=== PATIENT | female | born 1945 | race Caucasian/White ===

== ENCOUNTER → 2019-05-22 | Day surgery (SDC) | payer OTHER ==
[~2019-05-22] MED LIST: ALLEGRA ALLERG180 MG PO; BYSTOLIC 5 MG5 M1 PO; CALCIUM 600 MG1 EAC2 PO; COQ-10100 MG PO; CYMBALTA60 MG PO; EPIDIOLEX100 MG/1 M PO; FISH OIL 1,2001 EAC6 PO; FLECAINIDE ACE150 MG PO; HYDROCHLOROTHIA25 M2 PO; IRBESARTAN300 MG PO; LIPITOR 20 MG T20 M1 PO; MELATONIN10 M3 PO; METFORMIN HCL500 MG PO; MULTIVITAMINS1 EAC6 PO; NORVASC5 MG PO; PROAIR HFA8.5 GM INH; PROTONIX40 M1 PO; SINGULAIR 10 MG10 M1 PO; SYMBICORT160 MCG/4. INH; TYLENOL EXTRA500 MG PO; XARELTO20 MG PO; ZANAFLEX4 MG PO
--- NOTE | ~2019-05-22 | OP ---
[address] [address] OPERATIVE REPORT Name: MECHE RUIZ Room: [facility]#: [id number] Admission: 05/22/19 Attend Phys: Fawn Pappas DPM Discharge: Date of : 47 Report #: [id number] THIS REPORT FOR: //name// cc: Cata Jiang MD, Carrie W. MD ~ THIS REPORT FOR: //name// CC: Fawn Jiang DATE OF SERVICE: 05/22/2019 PREOPERATIVE DIAGNOSES: Achilles tendinitis with intratendinous calcifications, left heel and exostosis, left calcaneus. POSTOPERATIVE DIAGNOSES: Achilles tendinitis with intratendinous calcifications, left heel and exostosis, left calcaneus. PROCEDURES: Excision of insertional calcifications left Achilles tendon and ostectomy of left calcaneus. PATHOLOGY: None. ANESTHESIA: General with local infiltration of lidocaine and bupivacaine. HEMOSTASIS: Left pneumatic ankle tourniquet set at 250 mmHg pressure. ESTIMATED BLOOD LOSS: Less than 3 mL. MATERIALS: 3-0 Vicryl, 3-0 nylon and a G2 Mitek anchor with 2-0 Ethibond. INJECTABLES: 20 mL of 1% lidocaine plain preoperatively and 20 mL 0.5% bupivacaine postoperatively. DESCRIPTION OF PROCEDURE: The patient was brought to the OR and anesthesia was administered. The patient was then transferred into a prone position on the surgical bed. Once the patient was positioned properly, a well-padded pneumatic tourniquet was applied to the midcalf of the left lower extremity. A timeout was then called, patient identified along with the extremity to be worked on any allergies that she had, ASU score and any other pertinent information. All parties in the OR were in agreement. Next, the left heel was infiltrated with 20 mL of 1% lidocaine plain. The patient was then prepped and draped in the usual sterile and aseptic manner. Left foot was exsanguinated via an Esmarch bandage and the ankle tourniquet elevated to 250 mmHg pressure. Attention was then directed to the left posterior heel where an incision was made to the midline of the left heel approximately 5 cm proximal [place] [address] OPERATIVE REPORT Name: MECHE RUIZ Room: [facility]#: [id number] Admission: 05/22/19 Attend Phys: Fawn Pappas DPM Discharge: Date of : 47 Report #: [id number] Achilles tendon down to the plantar posterior surface of the calcaneus. Soft tissue was dissected down to the Achilles tendon. Deep tissue and fascia were from the Achilles tendon. Next, the lateral portion of the Achilles tendon was released from its posterior attachments to the heel. It was reflected medially. A significant bone spur was identified laterally. This was excised with an osteotome and mallet. Next, there was a dorsal posterior heel spur that was also resected with an osteotome and mallet. Surgical site was inspected. Any rough edges were smoothed. The Achilles tendon was debulked as it was abnormally thickened due to inflammation. Once surgical site was cleared of all abnormal tissue and ectopic bone, the area was flushed with sterile saline and bacitracin. Next, one G2 bone anchor was placed into the left heel with a 2-0 Ethibond suture attached. Utilizing the suture, the Achilles tendon was sutured down to the posterior calcaneus. Next, the deep and subcutaneous tissue was closed utilizing 3-0 Vicryl, skin was closed with 3-0 nylon. An additional 20 mL of 0.5% bupivacaine was infiltrated into the surgical site. Surgical site was then dressed with Betadine-soaked Adaptic, 4 x 4s, soft roll, Aidan and an Yovani wrap. Ankle tourniquet deflated. Vascular status returned immediately to the left foot. The patient was transferred from the prone position back to a supine position on the recovery room bed. The patient left the OR with vital signs stable and vascular status intact. By: [id number] WAYNE Pappas /coleen
[2019-05-22 07:33] LABS: HEMATOCRIT 33.7 % (37.0-47.0); HEMOGLOBIN 11.2 gm/dL (12.0-15.0); MCH 29.4 pg (26.0-34.0); MCHC 33.3 g/dL (28.0-37.0); MCV 88.3 fL (80.0-100.0); MPV 8.4 fl. (7.2-11.1); RBC 3.82 mil/uL (4.20-5.00); RDW-CV 13.9 % (10.5-14.5); WBC 10.5 thou/uL (4.0-11.0)
[2019-05-22 07:39] LABS: CALCIUM 9.1 mg/dL (8.5-10.1); CREATININE 1.1 mg/dL (0.6-1.3)
--- NOTE | 2019-05-30 14:57 | EKG ---
[place] [address] ELECTROCARDIOGRAM REPORT Name: MECHE RUIZ Room: [facility] [facility]#: [id number] Admission: 05/22/19 Attend Phys: Fawn Pappas DPM Discharge: Date of : 47 Date of Service: 05/22/19715 Report #: [id number] THIS REPORT FOR: //name// [facility] Test Date: 2019-05-22 Test Time: 07:16:27 Pat Name: MECHE RUIZ Department: Room: Gender: Public Information Relations Manager: : 1945 Requested By: Fawn Pappas Order Number: [id number] Reading MD: Dakota Crowley Measurements Intervals [place] Rate: 59 P: -21 [place]: 246 QRS: 5 QRSD: 121 T: 51 QT: 467 QTc: 463 Interpretive Statements Sinus rhythm Prolonged [place] interval nonspecific intraventricular block No previous ECG available for comparison Electronically Signed On 05-22-2019 9:55:53 [employer] by Dakota Crowley [email or web address] <ELECTRONICALLY SIGNED> By: Dakota Crowley MD, [facility] 05/22/1954 5 5 Dakota Crowley MD, FACC /EPI
== END | disposition home or self-care (01) ==
LOC: M.SUR 06:42
PROVIDERS: Podiatrist Foot & Ankle Surgery
DX: M77.32 Calcaneal spur, left foot (principal); M76.62 Achilles tendinitis, left leg; M65.872 Other synovitis and tenosynovitis, left ankle and foot; I10 Essential (primary) hypertension; E78.00 Pure hypercholesterolemia, unspecified; J45.909 Unspecified asthma, uncomplicated; F32.9 Major depressive disorder, single episode, unspecified; K21.9 Gastro-esophageal reflux disease without esophagitis; M19.90 Unspecified osteoarthritis, unspecified site; E66.01 Morbid (severe) obesity due to excess calories; Z98.890 Other specified postprocedural states; Z79.899 Other long term (current) drug therapy; Z90.710 Acquired absence of both cervix and uterus; Z88.0 Allergy status to penicillin; Z88.8 Allergy status to other drugs, medicaments and biological substances